=== PATIENT | female | born 1955 | race Caucasian/White ===

== ENCOUNTER 2016-09-24 10:04 | Emergency (ER) | payer MEDICARE ==
[2016-09-24 11:05] VITALS: BP 117/81
--- NOTE | 2016-09-24 11:11 | Emergency Department Report ---
Chief Complaint: Psych Stated Complaint: SUICIDAL THOUGHTS/DEPRESSION Time Seen by Provider: 09/24/16 11:06 - HPI History of Present Illness: 60-year-old female with a past medical history of bipolar schizophrenia hypertension and IBS and acid reflux comes in today for depression and suicidal thoughts and hearing voices. Patient reports she has a planned that she will use pain medication to kill herself. She also reports has a headache as well as a history of anxiety. She reports she also has homicidal thoughts as well. Her behavior health provider is Dr. Strauss at [facility] behavior - Exam Vital Signs: Vital Signs 09/24/16 10:56 Temperature 98.4 F Pulse Rate 63 Respiratory 20 Rate Blood Pressure 117/81 O2 Sat by Pulse 100 Oximetry Physical Exam: General: Alert and oriented 3 Cardio: Regular rate and rhythm S1-S2 no murmurs: Respiratory: Clear to auscultation bilateral MSE screening note: Focused history and physical exam performed. Due to findings the following was ordered: Patient's been evaluated by EMS E provider. Patient be evaluated in the main ER. ED Disposition for MSE Condition: Stable
[2016-09-24 11:30] LABS: Basophils % (Auto) 0.5 % (0.0-1.8); Eosinophils % (Auto) 0.8 % (0.0-4.3); Hematocrit 39.6 % (30.3-42.9); Hemoglobin 13.2 gm/dl (10.1-14.3); Mean Corpuscular HGB Conc 33 % (30-34); Mean Corpuscular Volume 76 fl (79-97); Platelet Count 399 K/mm3 (140-440); Red Blood Count 5.19 M/mm3 (3.65-5.03); Red Cell Distribution Width 14.5 % (13.2-15.2); White Blood Count 10.6 K/mm3 (4.5-11.0)
[2016-09-24 11:32] LABS: Mean Corpuscular Hemoglobin 25 pg (28-32)
[2016-09-24 11:41] LABS: Calcium 9.3 mg/dL (8.4-10.2); Potassium 4.2 mmol/L (3.6-5.0)
[2016-09-24 13:08] LABS: Urine Drugs of Abuse Note Disclamer
[2016-09-24 13:18] LABS: Bilirubin,Urine NEG (Negative); Blood,Urine SM (Negative); Ketones,Urine NEG (Negative); Leukocyte Esterase,Urine NEG (Negative); Nitrite,Urine NEG (Negative); Protein,Urine <15 mg/dL mg/dL (Negative); Urobilinogen,Urine < 2.0 mg/dL (<2.0); WBC,Urine < 1.0 /HPF (0.0-6.0)
--- NOTE | 2016-09-24 13:25 | Emergency Department Report ---
HPI - General Chief Complaint: Psych Time Seen by Provider: 09/24/16 11:06 - HPI HPI: Room 9 The patient is a 60-year-old female presenting with chief complaint of suicidal ideation. The patient states she's been "stressed out" for 3 months. The patient states for the past 2 weeks his suicidal ideation. Patient denies any active attempts at harming herself was states her plan included wrecking her car or overdosing on pills. The patient states she is also having auditory hallucinations telling her to "hurt myself" and "hurt others." The patient states she has been compliant with her medication Location: Mental state Duration: [see above] Quality: Suicidal Severity: Severe Modifying factors: [see above] Context: [see above] Mode of transportation: Unknown ED Past Medical Hx - Past Medical History Hx Hypertension: Yes Additional medical history: Depression, IBS, acid reflux, Dysrhythmia - Surgical History Additional Surgical History: Tonsil, hysterectomy, gall stones, nernia, c- section, tubal ligation - Family History Family history: no significant - Social History Smoking Status: Current Every Day Smoker (1/2 pack per day) Substance Use Type: None (denies illicit drug use), Alcohol (occasional) ED Review of Systems ROS: Stated complaint: SUICIDAL THOUGHTS/DEPRESSION Other details as noted in HPI Comment: All other systems reviewed and negative Constitutional: denies: chills, fever Eyes: denies: eye pain, eye discharge, vision change ENT: denies: ear pain, throat pain Respiratory: denies: cough, shortness of breath, wheezing Cardiovascular: denies: chest pain, palpitations Endocrine: no symptoms reported Gastrointestinal: denies: abdominal pain, nausea, diarrhea Genitourinary: denies: urgency, dysuria, discharge Musculoskeletal: denies: back pain, joint swelling, arthralgia Skin: denies: rash, lesions Neurological: denies: headache, weakness, paresthesias Psychiatric: depression, auditory hallucinations, suicidal thoughts Hematological/Lymphatic: denies: easy bleeding, easy bruising Physical Exam - Physical Exam Vital Signs: Vital Signs 09/24/16 10:56 Temperature 98.4 F Pulse Rate 63 Respiratory 20 Rate Blood Pressure 117/81 O2 Sat by Pulse 100 Oximetry Physical Exam: GENERAL: The patient is well-developed well-nourished female lying on stretcher not appearing to be in acute distress. [] HEENT: Normocephalic. Atraumatic. Extraocular motions are intact. Patient has moist mucous membranes. NECK: Supple. Trachea midline CHEST/LUNGS: Clear to auscultation. There is no respiratory distress noted. HEART/CARDIOVASCULAR: Regular. There is no tachycardia. There is no gallop rub or murmur. ABDOMEN: Abdomen is soft, nontender. Patient has normal bowel sounds. There is no abdominal distention. SKIN: There is no rash. There is no edema. There is no diaphoresis. NEURO: The patient is awake, alert, and oriented. The patient is cooperative. The patient has normal speech MUSCULOSKELETAL: There is no evidence of acute injury. ED Course Vital Signs 09/24/16 10:56 Temperature 98.4 F Pulse Rate 63 Respiratory 20 Rate Blood Pressure 117/81 O2 Sat by Pulse 100 Oximetry ED Medical Decision Making - Lab Data Result diagrams: 09/24/16 11:15 09/24/16 11:15 Laboratory Tests 09/24/16 09/24/16 09/24/16 11:15 11:15 11:15 WBC 10.6 RBC 5.19 H Hgb 13.2 Hct 39.6 MCV 76 L MCH 25 L MCHC 33 RDW 14.5 Plt Count 399 Lymph % (Auto) 29.4 [place] % (Auto) 8.9 H Eos % (Auto) 0.8 Baso % (Auto) 0.5 Lymph # 3.1 [place] # 0.9 H Eos # 0.1 Baso # 0.1 Seg Neutrophils % 60.4 Seg Neutrophils # 6.4 Sodium 142 Carbon Dioxide 29 BUN 21 H Creatinine 1.0 Estimated GFR 57 BUN/Creatinine Ratio 21.00 Glucose 136 H Calcium 9.3 Urine Color Urine Turbidity Urine pH Ur Specific [place] Urine Protein Urine Glucose (UA) Urine Ketones Urine Blood Urine Nitrite Urine Bilirubin Urine Urobilinogen Ur Leukocyte Esterase Urine WBC (Auto) Urine RBC (Auto) U Epithel Cells (Auto) Hyaline Casts Salicylates Urine Opiates Screen Urine Methadone Screen Acetaminophen Ur Barbiturates Screen Ur Phencyclidine Scrn Ur Amphetamines Screen U Benzodiazepines Scrn Urine Cocaine Screen U Marijuana (THC) Screen Drugs of Abuse Note Plasma/Serum Alcohol < 0.01 09/24/16 09/24/16 09/24/16 12:48 12:48 13:12 WBC RBC Hgb Hct MCV MCH MCHC RDW Plt Count Lymph % (Auto) [place] % (Auto) Eos % (Auto) Baso % (Auto) Lymph # [place] # Eos # Baso # Seg Neutrophils % Seg Neutrophils # Sodium Carbon Dioxide BUN Creatinine Estimated GFR BUN/Creatinine Ratio Glucose Calcium Urine Color Straw Urine Turbidity Clear Urine pH 6.0 Ur Specific [place] 1.009 Urine Protein <15 mg/dl Urine Glucose (UA) Neg Urine Ketones Neg Urine Blood Sm Urine Nitrite Neg Urine Bilirubin Neg Urine Urobilinogen < 2.0 Ur Leukocyte Esterase Neg Urine WBC (Auto) < 1.0 Urine RBC (Auto) 2.0 U Epithel Cells (Auto) 3.0 Hyaline Casts 1 Salicylates 0.3 L Urine Opiates Screen Presumptive negative Urine Methadone Screen Presumptive negative Acetaminophen Ur Barbiturates Screen Presumptive negative Ur Phencyclidine Scrn Presumptive negative Ur Amphetamines Screen Presumptive negative U Benzodiazepines Scrn Presumptive negative Urine Cocaine Screen Presumptive negative U Marijuana (THC) Screen Presumptive positive Drugs of Abuse Note Disclamer Plasma/Serum Alcohol 09/24/16 13:12 WBC RBC Hgb Hct MCV MCH MCHC RDW Plt Count Lymph % (Auto) [place] % (Auto) Eos % (Auto) Baso % (Auto) Lymph # [place] # Eos # Baso # Seg Neutrophils % Seg Neutrophils # Sodium Carbon Dioxide BUN Creatinine Estimated GFR BUN/Creatinine Ratio Glucose Calcium Urine Color Urine Turbidity Urine pH Ur Specific [place] Urine Protein Urine Glucose (UA) Urine Ketones Urine Blood Urine Nitrite Urine Bilirubin Urine Urobilinogen Ur Leukocyte Esterase Urine WBC (Auto) Urine RBC (Auto) U Epithel Cells (Auto) Hyaline Casts Salicylates Urine Opiates Screen Urine Methadone Screen Acetaminophen 15.0 Ur Barbiturates Screen Ur Phencyclidine Scrn Ur Amphetamines Screen U Benzodiazepines Scrn Urine Cocaine Screen U Marijuana (THC) Screen Drugs of Abuse Note Plasma/Serum Alcohol Potassium 4.2, chloride 101 - Differential Diagnosis suicidal ideation, schizophrenia, depression Critical care attestation.: If time is entered above; I have spent that time in minutes in the direct care of this critically ill patient, excluding procedure time. ED Disposition Clinical Impression: Suicidal ideation, Schizophrenia, Depression Disposition: DC/TX PSY HOSP/PSY UNIT Is pt being admited?: No Does the pt Need Aspirin: No Condition: Serious Referrals: PRIMARY CARE, [Primary Care Provider] - 3-5 Days Time of Disposition: 13:28 (awaiting acceptance)
== END 2016-09-24 20:30 ==
LOC: EEVIPCON 10:04 → ED 10:04
DX: F20.9 Schizophrenia, unspecified (principal); F32.9 Major depressive disorder, single episode, unspecified; R45.851 Suicidal ideations; I10 Essential (primary) hypertension; K58.9 Irritable bowel syndrome, unspecified; K21.9 Gastro-esophageal reflux disease without esophagitis; F17.210 Nicotine dependence, cigarettes, uncomplicated
CPT/HCPCS: 36415; 80048; 80307; 81001; 85025; 99284; G0480; 80320

== ENCOUNTER 2016-10-23 15:22 | Emergency (ER) | payer MEDICARE ==
[2016-10-23] MEDS ORDERED: ALUM-MAG HYDROX-SIMETH 200-200-20MG/5ML PO ONE (17:04)
[2016-10-23] MEDS ORDERED: NACL 0.9% 1000 ML 1,000 ML IV ONE (17:04)
[2016-10-23] MEDS ORDERED: LIDOCAINE VISCOUS 2% PO ONE (17:04)
[2016-10-23] MEDS ORDERED: GLUCAGEN IV ONE (17:07)
[2016-10-23] MEDS ORDERED: ZOFRAN IV ONE (17:09)
[2016-10-23 18:07] LABS: Basophils % (Auto) 0.2 % (0.0-1.8); Eosinophils % (Auto) 0.1 % (0.0-4.3); Hematocrit 38.8 % (30.3-42.9); Hemoglobin 13.1 gm/dl (10.1-14.3); Mean Corpuscular HGB Conc 34 % (30-34); Mean Corpuscular Volume 73 fl (79-97); Platelet Count 396 K/mm3 (140-440); Red Blood Count 5.28 M/mm3 (3.65-5.03); Red Cell Distribution Width 14.8 % (13.2-15.2); White Blood Count 14.7 K/mm3 (4.5-11.0)
[2016-10-23 18:12] LABS: Mean Corpuscular Hemoglobin 25 pg (28-32)
[2016-10-23 18:20] LABS: Alanine Aminotransferase 14 units/L (7-56); Albumin 4.6 g/dL (3.9-5); Albumin/Globulin Ratio 1.2 %; Alkaline Phosphatase 82 units/L (35-129); Anion Gap 19 mmol/L; BUN/Creatinine Ratio 37.77; Bilirubin,Total 0.8 mg/dL (0.1-1.2); Blood Urea Nitrogen 34 mg/dL (7-17); Calcium 9.8 mg/dL (8.4-10.2); Carbon Dioxide 25 mmol/L (22-30); Glucose 83 mg/dL (65-100); Potassium 3.6 mmol/L (3.6-5.0); Sodium 139 mmol/L (137-145); Total Protein 8.3 g/dL (6.3-8.2)
--- NOTE | 2016-10-23 18:32 | Emergency Department Report ---
ED General Adult HPI - General Chief complaint: Upper Respiratory Infection Stated complaint: ACID REFLUX/SPASM Time Seen by Provider: 10/23/16 16:47 Source: patient Mode of arrival: Ambulatory Limitations: No Limitations - History of Present Illness Initial comments: PT c/o acid reflux and difficulty swallowing x 3 days. PT states she was seen at [facility] and they did not do anything. PT has dc instructions that shows she was prescribed carafate and hydrocodone and given GI referral. PT states she takes medication for her Gerd everyday but it is not helping. PT states it feels like she is having a painful spam. MD Complaint: GERD Onset/Timin -: Gradual, days(s) Location: chest (and throat ) Severity scale (0 -10): 10 Quality: sharp, other (spasm ) Consistency: constant Improves with: none Worsens with: eating (pt states she has been unable to eat x 2 days ) Associated Symptoms: chest pain, loss of appetite, nausea/vomiting (pt unable to swallow oral secreations ). denies: fever/chills - Related Data Allergies Allergy/AdvReac Type Severity Reaction Status Date / Time acetaminophen [From Tylenol] Allergy Nausea Verified 09/24/16 10:56 ED Review of Systems ROS: Stated complaint: ACID REFLUX/SPASM Other details as noted in HPI Comment: All other systems reviewed and negative Constitutional: denies: fever ENT: throat pain Respiratory: shortness of breath (intermittent - states spasms take her breath away ). denies: cough Cardiovascular: chest pain Gastrointestinal: nausea, vomiting (spitting up saliva ). denies: abdominal pain Genitourinary: denies: dysuria, hematuria ED Past Medical Hx - Past Medical History Hx Hypertension: Yes Additional medical history: Depression, IBS, acid reflux, Dysrhythmia - Surgical History Additional Surgical History: Tonsil, hysterectomy, gall stones, nernia, c- section, tubal ligation - Social History Smoking Status: Current Every Day Smoker Substance Use Type: None ED Physical Exam - General Limitations: No Limitations General appearance: alert, anxious, other (tearful) - Head Head exam: Present: atraumatic, normocephalic - Eye Eye exam: Present: normal appearance - ENT ENT exam: Present: normal exam, normal orophraynx, mucous membranes moist, normal external ear exam, other (pt spitting salvia out ) - Neck Neck exam: Present: normal inspection, full ROM. Absent: tenderness - Respiratory Respiratory exam: Present: normal lung sounds bilaterally. Absent: respiratory distress - Cardiovascular Cardiovascular Exam: Present: normal rhythm, bradycardia - GI/Abdominal GI/Abdominal exam: Present: soft. Absent: tenderness - Extremities Exam Extremities exam: Present: normal inspection, full ROM - Back Exam Back exam: Present: normal inspection, full ROM - Neurological Exam Neurological exam: Present: alert, oriented X3 - Skin Skin exam: Present: warm, dry, intact ED Course Vital Signs 10/23/16 10/23/16 10/23/16 15:58 19:09 20:32 Temperature 99.1 F 98.2 F Pulse Rate 59 L 56 L 60 Respiratory 18 20 Rate Blood Pressure 142/92 147/79 Blood Pressure 148/79 [Right] O2 Sat by Pulse 100 98 Oximetry - Reevaluation(s) Reevaluation #1: 10/23/16 18:43 PT states the Maalox and Lidocaine caused a spasm. PT states she is still having trouble managing secretions, however, pt was able to tolerate the Maalox and Lidocaine. Reevaluation #2: 10/23/16 21:35 pt states she is feeling better and is able to swallow. PT states she has an appointment with GI on tuesday. - Pulse Oximetry Interpretation Digit-Finger Initial Pulse Oximetry Readin Actions Taken: none ED Medical Decision Making - Lab Data Result diagrams: 10/23/16 17:39 10/23/16 17:39 - Radiology Data Radiology results: image reviewed - Differential Diagnosis gerd, esophageal spasm Critical care attestation.: If time is entered above; I have spent that time in minutes in the direct care of this critically ill patient, excluding procedure time. ED Disposition Clinical Impression: Esophageal spasm GERD (gastroesophageal reflux disease) Qualifiers: Esophagitis presence: with esophagitis Qualified Code(s): K21.0 - Gastro- esophageal reflux disease with esophagitis Disposition: DISCHARGED TO HOME OR SELFCARE Is pt being admited?: No Does the pt Need Aspirin: No Condition: Stable Instructions: Diet for Ulcers and Gastritis (ED), Gastroesophageal Reflux Disease (ED), Esophageal Spasm (ED) Additional Instructions: Continue taking your prescription medications Follow up with GI on Tuesday, as you have already scheduled Return to ED if worsening or concerns Referrals: PRIMARY CARE [Primary Care Provider] - 3-5 Days
[2016-10-23] MEDS ORDERED: NITROSTAT SL ONE (18:51)
[2016-10-23] MEDS ORDERED: MORPHINE IV ONE (18:51)
[2016-10-23] MEDS ORDERED: PEPCID IV ONE (18:51)
[2016-10-23 19:14] LABS: Bilirubin,Urine NEG (Negative); Blood,Urine MOD (Negative); Ketones,Urine 20 mg/dL (Negative); Leukocyte Esterase,Urine NEG (Negative); Mucus,Urine 1+ /HPF; Nitrite,Urine NEG (Negative); Protein,Urine <15 mg/dL mg/dL (Negative); Urobilinogen,Urine < 2.0 mg/dL (<2.0)
[2016-10-23 20:33] VITALS: BP 148/79
--- NOTE | 2016-10-23 21:57 | XRay Report ---
FINAL REPORT PROCEDURE: XR CHEST ROUTINE 2V TECHNIQUE: PA and lateral chest radiographs were obtained. CPT 70971 HISTORY: chest pain COMPARISON: No prior studies are available for comparison. FINDINGS: Heart: Normal. Mediastinum/Vessels: Normal. Lungs/Pleural space: Normal. Bony thorax: No acute osseous abnormality. Other: IMPRESSION: Negative exam..
== END 2016-10-23 22:41 | disposition home or self-care (01) ==
LOC: ED 15:22
DX: K21.0 Gastro-esophageal reflux disease with esophagitis (principal); K22.4 Dyskinesia of esophagus; I10 Essential (primary) hypertension; F17.200 Nicotine dependence, unspecified, uncomplicated
CPT/HCPCS: 36415; 71020; 80053; 81001; 84484; 85025; 93005; 93010; 96361; 96374; 96375; 99284; J1610; J2270; J2405; J7030

== ENCOUNTER 2016-10-27 11:39 | Inpatient (IN) | payer MEDICARE ==
[2016-10-27 18:30] LABS: Bilirubin,Urine NEG (Negative); Blood,Urine MOD (Negative); Ketones,Urine NEG (Negative); Leukocyte Esterase,Urine NEG (Negative); Mucus,Urine FEW /HPF; Nitrite,Urine NEG (Negative); Protein,Urine <15 mg/dL mg/dL (Negative); Urobilinogen,Urine < 2.0 mg/dL (<2.0)
[2016-10-27] MEDS ORDERED: LIDOCAINE VISCOUS 2% PO ONE ×2 (18:56→20:46)
--- NOTE | 2016-10-27 19:05 | Emergency Department Report ---
HPI - General Chief Complaint: Pain General Time Seen by Provider: 10/27/16 18:46 - HPI HPI: Room 5 The patient is a 60-year-old female presenting with a chief complaint of esophageal spasm. Patient states she's been suffering from esophageal spasm intermittently since 2012. The patient states she had a recent flareup 2 weeks ago and went to [facility]. The patient states she left [place] came to our hospital for evaluation. There are hospital the patient was administered GI cocktail was originally worsened her symptoms she states but then felt improved enough to be discharged home. The patient followed up with her regional planner (Dr. Guerra/Dr. Diggs 10/25/2016). The patient was started on fluconazole and scheduled for an EGD for 2016. The patient states she's been compliant with the medication but she continues to have the burning pain in her esophagus. Location: Esophagus Duration: [see above] Quality: Burning Severity: Moderate Modifying factors: [see above] Context: [see above] Mode of transportation: [not driving] ED Past Medical Hx - Past Medical History Previous Medical History?: (esophagitis,) Hx Hypertension: Yes Hx GERD: Yes Additional medical history: Depression, IBS, acid reflux, Dysrhythmia - Surgical History Additional Surgical History: Tonsil, hysterectomy, gall stones, nernia, c- section, tubal ligation - Family History Family history: no significant - Social History Smoking Status: Current Every Day Smoker Substance Use Type: None (denies illicit drug use), Alcohol ED Review of Systems ROS: Stated complaint: THROAT/REFLUX Other details as noted in HPI Comment: All other systems reviewed and negative Constitutional: denies: chills, fever Eyes: denies: eye pain, eye discharge, vision change ENT: throat pain Respiratory: denies: cough, shortness of breath, wheezing Cardiovascular: denies: chest pain, palpitations Endocrine: no symptoms reported Gastrointestinal: denies: abdominal pain, nausea, diarrhea Genitourinary: denies: urgency, dysuria, discharge Musculoskeletal: denies: back pain, joint swelling, arthralgia Skin: denies: rash, lesions Neurological: denies: headache, weakness, paresthesias Psychiatric: denies: anxiety, depression Hematological/Lymphatic: denies: easy bleeding, easy bruising Physical Exam - Physical Exam Vital Signs: Vital Signs 10/27/16 10/27/16 10/27/16 12:24 17:04 17:05 Temperature 98.5 F Pulse Rate 56 L 64 Respiratory 20 16 16 Rate Blood Pressure 157/87 Blood Pressure 198/94 [Left] O2 Sat by Pulse 100 98 98 Oximetry Physical Exam: GENERAL: The patient is well-developed well-nourished female lying on stretcher not appearing to be in acute distress. [] HEENT: Normocephalic. Atraumatic. Extraocular motions are intact. No definite erythema seen in the oropharynx or definite thrush. Oropharynx has non -unform pale yellow and pink patchy appearance NECK: Supple. No meningitic signs are noted. Trachea midline CHEST/LUNGS: Clear to auscultation. There is no respiratory distress noted. HEART/CARDIOVASCULAR: Regular. There is no tachycardia. There is no gallop rub or murmur. ABDOMEN: There is no abdominal distention. SKIN: There is no rash. There is no edema. There is no diaphoresis. NEURO: The patient is awake, alert, and oriented. The patient is cooperative. The patient has normal speech MUSCULOSKELETAL: There is no evidence of acute injury. ED Course Vital Signs 10/27/16 10/27/16 10/27/16 12:24 17:04 17:05 Temperature 98.5 F Pulse Rate 56 L 64 Respiratory 20 16 16 Rate Blood Pressure 157/87 Blood Pressure 198/94 [Left] O2 Sat by Pulse 100 98 98 Oximetry - Consultations Consultation #1: 10/27/16 19:05 Gastroenterology paged 10/27/16 19:[address] Plummer-states patient can be given something for pain ( Vicoprofen is okay) and above the patient can tolerate by mouth she can follow- up with Dr. Diggs in the morning 10/27/16 20:34 Patient states she has had temporary relief with lidocaine but is concerned because she is unable to eat or drink. We'll admit the patient to the hospital 10/27/16 20:36 Hospitalist paged Critical care attestation.: If time is entered above; I have spent that time in minutes in the direct care of this critically ill patient, excluding procedure time. ED Disposition Clinical Impression: GERD (gastroesophageal reflux disease), Esophageal spasm, Hypertension, Dysphagia Disposition: OP ADMITTED IP TO THIS HOSP Is pt being admited?: Yes Does the pt Need Aspirin: No Condition: Fair Instructions: Hypertension (ED) Referrals: PRIMARY CARE, [Primary Care Provider] - 3-5 Days Time of Disposition: 20:37 (hospitalist paged)
[2016-10-27] MEDS ORDERED: NACL 0.9% 1000 ML 1,000 ML IV ONE (20:34)
--- NOTE | 2016-10-27 20:41 | History and Physical Report ---
History of Present Illness Chief complaint: It hurts when i swallow History of present illness: 60 YO Female with SARAHY, IBS, GERD, Nicotine Dependence,Depression, HTN presents to ED for evaluation. Pt states that she has experienced pain upon swallowing for the past week. Pt seen and treated at [facility] 2 weeks ago, but symptoms persist. Pt states that symptoms have worsened over the past 24 hours. Pt is unable to tolerate oral diet. Pt denies fever, chills, CP, palpitation, difficulty breathing, unintentional weight loss, fever, night sweats. The patient followed up with her director drug safety (Dr. Guerra/Dr. Diggs 10/25). The patient was started on fluconazole and scheduled for an EGD. The patient states she's been compliant with the medication but she continues to have the burning pain in her esophagus. Past History Past Medical History: GERD, hypertension Past Surgical History: , hysterectomy, hernia repair, Other (tubal ligation) Medications and Allergies Allergies Allergy/AdvReac Type Severity Reaction Status Date / Time acetaminophen [From Tylenol] Allergy Nausea Verified 09/24/16 10:56 Home Medications Medication Instructions Recorded Confirmed Last Taken Type Unobtainable 10/27/16 10/27/16 Unknown History Active Meds: Active Medications Sodium Chloride (Nacl 0.9% 1000 Ml) 1,000 mls @ 999 mls/hr IV ONCE ONE Stop: 10/27/16 21:34 Last Admin: 10/27/16 20:36 Dose: 999 mls/hr Review of Systems All systems: negative Gastrointestinal: other (odynophagia) Exam - Constitutional Vitals: Temp Pulse Resp BP Pulse Ox 98.5 F 64 16 198/94 98 10/27/16 12:24 10/27/16 17:04 10/27/16 17:05 10/27/16 17:04 10/27/16 17:05 General appearance: Present: mild distress - EENT Eyes: Present: PERRL ENT: hearing intact, clear oral mucosa - Neck Neck: Present: supple, normal ROM - Respiratory Respiratory effort: normal Respiratory: bilateral: CTA - Cardiovascular Heart Sounds: Present: S1 & S2. Absent: rub, click - Extremities Extremities: pulses symmetrical, No edema Peripheral Pulses: within normal limits - Abdominal General gastrointestinal: Present: soft, non-tender, non-distended, normal bowel sounds Female genitourinary: Present: normal - Integumentary Integumentary: Present: clear, warm, dry - Musculoskeletal Musculoskeletal: gait normal, strength equal bilaterally - Psychiatric Psychiatric: appropriate mood/affect, intact judgment & insight - Neurologic Neurologic: CNII-XII intact, moves all extremities Results - Labs CBC & Chem 7: 10/27/16 21:25 10/27/16 21:25 Assessment and Plan - Patient Problems (1) Esophageal spasm Current Visit: Yes Status: Acute Plan to address problem: GI consulted, PPI therapy, Calcium channel florencio, supportive care, bowel rest (2) Accelerated hypertension Current Visit: Yes Status: Acute Plan to address problem: Monitor bp q shift, continue current antihypertensive therapy (3) Dysphagia Current Visit: Yes Status: Acute Qualifiers: Dysphagia type: D Plan to address problem: GI consulted, EGD as per GI team. (4) GERD (gastroesophageal reflux disease) Current Visit: Yes Status: Acute Qualifiers: Esophagitis presence: E Plan to address problem: PPI therapy, supportive care. (5) DVT prophylaxis Current Visit: Yes Status: Acute
[2016-10-27] MEDS ORDERED: TYLENOL PO PRN (20:43)
[2016-10-27] MEDS ORDERED: NORVASC PO ONE (20:47)
[2016-10-27] MEDS ORDERED: APRESOLINE IV PRN (20:48)
--- NOTE | 2016-10-27 20:53 | Admit Criteria Form ---
Admission Criteria Documentation: GASTROENTEROLOGY GRG Clinical Indications for Admission to Inpatient Care (Place 'X' for any and all applicable criteria): Hospital admission is needed for appropriate care of the patient because of ANY ONE of the following: [ ]I. Hemoperitoneum(7) [ ]II. Ascites requiring acute treatment indicated by ANY ONE of the following( 8)(9): [ ]a) Hemodynamic instability remaining after emergency or observation level care (as appropriate) [ ]b) Peritoneal signs present (eg, abdominal rigidity, rebound tenderness, absent bowel sounds) [ ]c) Tachypnea, Hypoxemia, or other respiratory symptoms remain after emergency or observation level care (as appropriate) [ ]d) Suspected infected ascites as indicated by ANY ONE of the following: [ ]i) Temperature greater than 100 degrees F (37.8 degrees C) [ ]ii) Abdominal pain or tenderness not relieved by paracentesis [ ]iii) Systemic signs of infection (eg, elevated WBC count, fever) [ ]iv) Ascitic fluid analysis consistent with infection ( eg, elevated WBC count): [ ]v) Vital sign abnormality [ ]III. Suspected acute intra-abdominal process indicated by ANY ONE of the following(1)(2)(3)(4)(5): [ ]a) Hemodynamic instability [ ]b) Peritoneal signs present (eg, abdominal rigidity, rebound tenderness, absent bowel sounds) [ ]c) Bowel obstruction suspected (eg, severe vomiting, abdominal distension) [ ]d) Suspected mesenteric ischemia or ischemic colitis(6) [ ]e) Other signs or symptoms of acute abdominal disease (eg, severe pain, free air): [ ]IV. Severe liver disease indicated by ANY ONE of the following(8)(9)(10)(11)( 12)(13)(14): [ ]a) Acute hepatitis (eg, transaminase level greater than 1000 IU/L) [ ]b) Acute elevation of prothrombin time to more than 50% above normal or INR greater than 1.5 [ ]c) Bilirubin greater than 20 mg/dL (342 micromoles/L) (15) [ ]d) New-onset or worsening hepatic encephalopathy [ ]e) Acute liver necrosis [ ]f) Vomiting or dehydration that is severe of persistent [ ]g) Hemodynamic instability due to liver disease [ ]h) Acute renal failure [ ]i) Hepatic abscess [ ]j) Dehydration that is severe or persistent [ ]k) Hepatic hydrothorax(21) [ ]l) Other indications of severe liver disease (eg, persistent fever , ingestion of hepatotoxin) [ ]V. Severe diarrhea indicated by ANY ONE of the following(17)(18)(19)(20)(21)( 22)(23): [ ]a) High fever or other high-risk infection situation [ ]b) Intractable bloody diarrhea (eg, more than 6 bloody stools per day) [ ]c) Suspected Clostridium difficile-associated diarrhea(24) [ ]d) Change in mental status that persists after emergency or observation level care (as appropriate) [ ]e) Severe dehydration (eg, greater than 9% loss of body weight in children) [ ]f) Inability to maintain hydration [ ]g) Peritoneal signs present (eg, abdominal rigidity, rebound tenderness, absent bowel sounds) [ ]h) Abdominal ischemia suspected(6) [ ]i) Hemodynamic instability that persists after emergency or observation level care (as appropriate) [ ]j) Severe electrolyte abnormalities requiring inpatient care [ ]k) Acute renal failure [ ]. Suspected toxic megacolon(5)(6) [ ]VII.Severe dysphagia indicated by ANY ONE of the following(25)(26): [ ]a) Suspected esophageal perforation or fistula(27) [ ]b) Suspected cause that requires inpatient care (eg, caustic ingestion, severe esophagitis) (28) [ ]c) Severe dehydration (eg, greater than 9% loss of body weight in children) [ ]d) Inability to manage secretions or maintain hydration [ ]e) Hemodynamic instability that persists after emergency or observation level care (as appropriate) [ ]f) Severe electrolyte abnormalities requiring inpatient care [ ]g) Acute renal failure [ ]VIII.Vomiting and ANY ONE of the following (29)(30)(31)(32): [ ]a) High fever or other high-risk infection situation [ ]b) Change in mental status that persists after emergency or observation level care (as appropriate) [ ]c) Severe dehydration (e.g., greater than 9% loss of body weight in children) [ ]d) Peritoneal signs present (e.g., abdominal rigidity, rebound tenderness, absent bowel sounds) [ ]e) Hemodynamic instability that persists after emergency or observation level care (as appropriate) [ ]f) Severe electrolyte abnormalities requiring inpatient care [ ]g) Acute renal failure [ ]h) Bowel obstruction suspected (e.g., severe vomiting, abdominal distension) [ ]i) Vomiting that is severe or persistent after medical treatment [ ]IX. Significant dehydration indicated by ANY ONE of the following(23)(24)(25) [ ]a) Clinical findings of severe dehydration indicated by ANY ONE of the following: [ ]i) Acute loss of weight from baseline (5% of body weight in adults, 9% in pediatric patients) [ ]ii) Hemodynamic instability [ ]iii) Acute renal failure [ ]iv) Serum sodium greater than 150 mEq/L (mmol/L) [ ]b) Dehydration that is persistent indicated by ALL of the following: [ ]i) Oral rehydration therapy not tolerated or insufficient to adequately correct dehydration [ ]ii) Appropriate intravenous treatment (eg, fluids) does not readily correct dehydration hours of (ie, after 12 to 24 of treatment) [ ]X. Gastroparesis and ANY ONE of the following(37)(38)(39): [ ]a) Dehydration that is severe or persistent [ ]b) Severe electrolyte abnormalities requiring inpatient care [ ]c) Acute renal failure [ ]d) Vomiting that is severe or persistent [ ]XI. Complications of transplanted liver indicated by ANY ONE of the following (40)(41): [ ]a) Acute graft rejection requiring inpatient management (eg, intravenous immunosuppression)(42) [ ]b) Failure of transplanted liver as indicated by ANY ONE of the following: [ ]i) Acute hepatitis (eg, transaminase level greater than 1000 International Units per liter (IU/L)) [ ]ii) Acute elevation of prothrombin time to more than 50% above baseline or INR greater than 1.5 [ ]iii) Bilirubin greater than 20 mg/dL (342 micromoles/L) [ ]iv) New-onset or worsening hepatic encephalopathy [ ]v) Acute elevation of serum ammonia level (eg, greater than 210 mcg/dL (150 micromoles/L)) [ ]vi) Acute liver necrosis [ ]c) Infection requiring inpatient management (eg, Hemodynamic instability, need for intravenous antimicrobial treatment)(43)(44)(45)(46)(47)(48)(49)(50) [ ]d) Other complication of transplanted liver (eg, thrombosis, autoimmune hepatitis, variceal bleeding) requiring inpatient management(51)(52) [ ]XII Complications of transplanted pancreas indicated by ANY ONE of the following(53): [ ]a) Acute graft rejection requiring inpatient management (eg, intravenous immunosuppression)(42)(54) [ ]b) Failure of transplanted pancreas as indicated by ANY ONE of the following: [ ]i) Serum amylase greater than 3 times the upper limit of normal or baseline [ ]ii) Serum lipase greater than 3 times the upper limit of normal or baseline [ ]iii) Imaging findings consistent with pancreatic inflammation or necrosis [ ]c) Infection requiring inpatient management (eg, Hemodynamic instability, need for intravenous antimicrobial treatment)(43)(44)(45)(46)(47)(48)(49)(50) [ ]d) Other complication of transplanted liver (eg, thrombosis, autoimmune hepatitis, variceal bleeding) requiring inpatient management(51)(52) [X ]X. Gastroenterology condition and ALL of the following: [ X]a) Symptom or finding for which emergency and observation care have failed or are not considered appropriate (Also use General Criteria: Observation Care as appropriate) [X ]b) Presence of ANY ONE of the following: X ]i) A General Admission Criteria [ ]ii) A Pediatric General Admission Criteria. The original [facility] [employer] [facility] content created by [facility] has been revised. The portions of the content which have been revised are identified through the use of italic text or in bold,and [facility] has neither reviewed nor approved the modified material. All other unmodified content is copyright [facility]. Please see references footnoted in the original [facility] edition 2016 Admission Criteria Met: Yes
[2016-10-27 21:43] LABS: Basophils % (Auto) 0.6 % (0.0-1.8); Eosinophils % (Auto) 0.7 % (0.0-4.3); Hematocrit 37.9 % (30.3-42.9); Hemoglobin 12.8 gm/dl (10.1-14.3); Mean Corpuscular HGB Conc 34 % (30-34); Mean Corpuscular Hemoglobin 25 pg (28-32); Mean Corpuscular Volume 75 fl (79-97); Platelet Count 342 K/mm3 (140-440); Red Blood Count 5.06 M/mm3 (3.65-5.03); Red Cell Distribution Width 15.1 % (13.2-15.2); White Blood Count 9.1 K/mm3 (4.5-11.0)
[2016-10-27 21:56] LABS: Anion Gap 16 mmol/L; BUN/Creatinine Ratio 22.85; Blood Urea Nitrogen 16 mg/dL (7-17); Calcium 9.2 mg/dL (8.4-10.2); Carbon Dioxide 24 mmol/L (22-30); Glucose 78 mg/dL (65-100); Sodium 140 mmol/L (137-145)
[2016-10-27] MEDS: NACL 0.45% 1000 ML 1,000 ML IV SCH (23:02)
[2016-10-28] MEDS ORDERED: CHLORASEPTIC MM PRN (01:42)
[2016-10-28] MEDS ORDERED: LIDOCAINE VISCOUS 2% PO ONE (04:50)
[2016-10-28] MEDS: PROTONIX IV SCH ×2 (10:25→22:07)
[2016-10-28] MEDS: NACL 0.45% 1000 ML 1,000 ML IV SCH (13:00)
--- NOTE | 2016-10-28 16:31 | Progress Note ---
Assessment and Plan Assessment and plan: 1. Dysphagia Has history of recent presumed candidal esophagitis for which she received fluconazole prescribed by client reporting associate; seen recently by Dr. Guerra while admitted at [facility] and supposed to have an outpatient EGD Differential diagnosis - esophagitis versus esophageal spasm versus severe acid reflux versus conversion disorder Consult GI for possible EGD/biopsy, nanometry Give IV PPI, calcium channel florencio, topical anesthetic 2. GERD On IV PPI for now 3. Hypertension Start amlodipine which will also help if she has esophageal spasms Monitor BP 4. Depression Unknown if on any medications at home 5. Tobacco use Counseled regarding importance of quitting 6. DVT prophylaxis History Interval history: c/o inability to swallow, pain upper chest, "throat spasms" Hospitalist Physical - Constitutional Vitals: Temp Pulse Resp BP Pulse Ox 98.3 F 51 L 18 145/77 99 10/28/16 15:55 10/28/16 15:55 10/28/16 15:55 10/28/16 15:55 10/28/16 15:55 General appearance: Present: no acute distress, well-nourished - EENT Eyes: Present: PERRL, EOM intact. Absent: scleral icterus, conjunctival injection - Neck Neck: Present: supple, normal ROM. Absent: masses or JVD - Respiratory Respiratory effort: normal Respiratory: bilateral: CTA, negative: rales, rhonchi, wheezing - Cardiovascular Rhythm: regular Heart Sounds: Present: S1 & S2. Absent: systolic murmur - Extremities Extremities: no ischemia, No edema - Abdominal General gastrointestinal: soft, non-tender, non-distended, normal bowel sounds - Integumentary Integumentary: Present: warm, dry. Absent: jaundice, rash - Neurologic Neurologic: CNII-XII intact, no focal deficits Results - Labs CBC & Chem 7: 10/27/16 21:25 10/27/16 21:25 Labs: Laboratory Last Values WBC 9.1 K/mm3 (4.5-11.0) 10/27/16 21:25 RBC 5.06 M/mm3 (3.65-5.03) H 10/27/16 21:25 Hgb 12.8 gm/dl (10.1-14.3) 10/27/16 21:25 Hct 37.9 % (30.3-42.9) 10/27/16 21:25 MCV 75 fl (79-97) L 10/27/16 21:25 MCH 25 pg (28-32) L 10/27/16 21:25 MCHC 34 % (30-34) 10/27/16 21:25 RDW 15.1 % (13.2-15.2) 10/27/16 21:25 Plt Count 342 K/mm3 (140-440) 10/27/16 21:25 Lymph % (Auto) 46.8 % (13.4-35.0) H 10/27/16 21:25 [place] % (Auto) 8.5 % (0.0-7.3) H 10/27/16 21:25 Eos % (Auto) 0.7 % (0.0-4.3) 10/27/16 21:25 Baso % (Auto) 0.6 % (0.0-1.8) 10/27/16 21:25 Lymph # 4.3 K/mm3 (1.2-5.4) 10/27/16 21:25 [place] # 0.8 K/mm3 (0.0-0.8) 10/27/16 21:25 Eos # 0.1 K/mm3 (0.0-0.4) 10/27/16 21:25 Baso # 0.1 K/mm3 (0.0-0.1) 10/27/16 21:25 Seg Neutrophils % 43.4 % (40.0-70.0) 10/27/16 21:25 Seg Neutrophils # 3.9 K/mm3 (1.8-7.7) 10/27/16 21:25 Sodium 140 mmol/L (137-145) 10/27/16 21:25 Potassium 4.0 mmol/L (3.6-5.0) 10/27/16 21:25 Chloride 104.0 mmol/L (98-107) 10/27/16 21:25 Carbon Dioxide 24 mmol/L (22-30) 10/27/16 21:25 Anion Gap 16 mmol/L 10/27/16 21:25 BUN 16 mg/dL (7-17) 10/27/16 21:25 Creatinine 0.7 mg/dL (0.7-1.2) 10/27/16 21:25 Estimated GFR > 60 ml/min 10/27/16 21:25 BUN/Creatinine Ratio 22.85 % 10/27/16 21:25 Glucose 78 mg/dL (65-100) 10/27/16 21:25 Calcium 9.2 mg/dL (8.4-10.2) 10/27/16 21:25 Urine Color Yellow (Yellow) 10/27/16 16:51 Urine Turbidity Clear (Clear) 10/27/16 16:51 Urine pH 5.0 (5.0-7.0) 10/27/16 16:51 Ur Specific [place] 1.023 (1.003-1.030) 10/27/16 16:51 Urine Protein <15 mg/dl mg/dL (Negative) 10/27/16 16:51 Urine Glucose (UA) Neg mg/dL (Negative) 10/27/16 16:51 Urine Ketones Neg mg/dL (Negative) 10/27/16 16:51 Urine Blood Mod (Negative) 10/27/16 16:51 Urine Nitrite Neg (Negative) 10/27/16 16:51 Urine Bilirubin Neg (Negative) 10/27/16 16:51 Urine Urobilinogen < 2.0 mg/dL (<2.0) 10/27/16 16:51 Ur Leukocyte Esterase Neg (Negative) 10/27/16 16:51 Urine WBC (Auto) 1.0 /HPF (0.0-6.0) 10/27/16 16:51 Urine RBC (Auto) 8.0 /HPF (0.0-6.0) 10/27/16 16:51 U Epithel Cells (Auto) 2.0 /HPF (0-13.0) 10/27/16 16:51 Calcium Oxalate Crystal 2+ 10/27/16 16:51 Urine Mucus Few /HPF 10/27/16 16:51
[2016-10-28] MEDS: CARAFATE PO SCH ×2 (18:07→23:57)
[2016-10-28] MEDS: NORVASC PO SCH (18:07)
[2016-10-28] MEDS: LIDOCAINE VISCOUS 2% PO PRN (20:24)
--- NOTE | 2016-10-29 00:53 | Consultation ---
REFERRING PHYSICIAN: Danuta Barnes MD INDICATION: Odynophagia. HISTORY OF PRESENT ILLNESS: The patient is a 60-year-old black female with history of IBS, GERD, depression, and hypertension. The patient has previously been seen for dysphagia, status post EGD dilatation in middle of last year. The patient reports that recently she has been having some problems with swallowing. Her previous EGD showed Jeanine esophagitis when she saw Dr. Yosef Diggs. Recently, she was put on Diflucan for 7 days. We will plan for a repeat EGD in of coming weeks. The patient reports that she is having problems with spasm in her upper esophageal throat area. She does report she does have reflux and feels like that she is also still having symptoms related to that. She reports no nausea or vomiting. She denies any lower GI symptoms including diarrhea, constipation, or rectal bleeding. No other specific complaints. The patient reports that she has seen ENT over recent months and was told that her symptoms were ENT related. PAST MEDICAL HISTORY: 1. GERD. 2. Hypertension. 3. Status post . 4. Status post hysterectomy. 5. Status post hernia repair. MEDICATIONS: See chart. ALLERGIES: Acetaminophen. SOCIAL HISTORY: Denies alcohol, tobacco, or IV drug abuse. FAMILY HISTORY: Negative for colon cancer. REVIEW OF SYSTEMS: GENERAL: Reports mild weakness. HEENT: No visual complaints or tinnitus. PULMONARY: Denies shortness of breath. CARDIOVASCULAR: No chest pain. GASTROINTESTINAL: Reports esophageal spasms. All points of 13-point review of systems otherwise negative. PHYSICAL EXAMINATION: VITAL SIGNS: Temperature of 98.7, pulse 77, respirations 18, blood pressure 130/70. HEENT: Pupils equal, round, and reactive to light and accommodation. Extraocular movements intact. PULMONARY: Clear to auscultation bilaterally. CARDIOVASCULAR: Regular rate rhythm. Normal S1, S2. ABDOMEN: Positive bowel sounds, soft. SKIN: No obvious rashes. LABORATORY DATA: Pertinent for white count of 9, hemoglobin and hematocrit of 12.8 and 37.9, platelet count 342. Chem-7 within normal limits. ASSESSMENT AND PLAN: A 60-year-old female with history of Jeanine esophagitis on EGD last year and now has had some problems with reported upper esophageal throat spasms and difficulty swallowing. The patient seems to not be able to transfer food from oral cavity or esophagus. I am not sure if this is a GI problem. She does have some esophageal spasms. Management as noted below. PLAN: 1. Continue PPI and calcium channel blockers started. 2. Start Carafate daily. 3. Avoid NSAIDs and aspirin. 4. Plan EGD in a.m. JOB# [id number] CAB/NTS MTDD
[2016-10-29] MEDS: NACL 0.45% 1000 ML 1,000 ML IV SCH (05:02)
[2016-10-29] MEDS: CARAFATE PO SCH ×3 (06:41→17:03)
[2016-10-29] MEDS ORDERED: WATER FOR IRRIG STERILE IR ONE (09:11)
[2016-10-29] MEDS: NORVASC PO SCH ×2 (09:13→12:12)
[2016-10-29] MEDS: PROTONIX IV SCH (09:14)
--- NOTE | 2016-10-29 09:30 | Anesthesia Day of Surgery ---
Anesthesia Day of Surgery - Day of Surgery Patient Examined: Yes Patient H&P Reviewed: Yes Patient is NPO: Yes
--- NOTE | 2016-10-29 09:30 | Anesthesia Consultation ---
Anesthesia Consult and Med Hx Date of service: 10/29/16 - Airway Anesthetic Teeth Evaluation: Poor ROM Head & Neck: Adequate Mental/Hyoid Distance: Adequate Mallampati Class: Class II Intubation Access Assessment: Probably Good - Pre-Operative Health Status ASA Pre-Surgery Classification: ASA2 Proposed Anesthetic Plan: MAC - Pulmonary Hx Smoking: Yes Hx Asthma: Yes COPD: No Hx Pneumonia: Yes Hx Sleep Apnea: No - Cardiovascular System Hx Hypertension: Yes Hx Coronary Artery Disease: No Hx Heart Attack/AMI: No Hx Angina: No Hx Percutaneous Transluminal Coronary Angioplasty (PTCA): No Hx Pacemaker: No Hx Internal Defibrillator: No Hx Valvular Heart Disease: No Hx Heart Murmur: No Hx Peripheral Vascular Disease: No - Central Nervous System Hx Psychiatric Problems: Yes (SUICIDAL IDEATION) - Gastrointestinal Hx Ulcer: No Hx Gastroesophageal Reflux Disease: No (IBS, dysphagea) - Endocrine Hx End Stage Renal Disease: No - Other Systems Hx Cancer: No
[2016-10-29] MEDS: NACL 0.9% 1000 ML 1,000 ML IV SCH ×2 (09:32→18:05)
[2016-10-29] MEDS ORDERED: DIPRIVAN 10 MG/ML IV ONE ×3 (09:37→09:48)
[2016-10-29] MEDS ORDERED: XYLOCAINE MPF 2% ONE (09:41)
--- NOTE | 2016-10-29 10:04 | Post Operative Note ---
Pre-op diagnosis: esophaela spasm, dysphagia Post-op diagnosis: same Findings: EGD: small hiatal hernia - irregular z-line 38 cm (bx's) - gastritis (bx's) - Harrison 56F dilation) Procedure: EGD Anesthesia: MAC Surgeon: MOISE FOX Estimated blood loss: none Pathology: list Specimen disposition: to lab Condition: stable Disposition: floor
--- NOTE | 2016-10-29 10:35 | Post Anesthesia Evaluation ---
- Post Anesthesia Evaluation Patient Participated: Yes Airway Patent: Yes Stable Respiratory Function: Yes Nausea/Vomiting: No Temp > 96.8F: Yes Pain Manageable: Yes Adequeate Hydration: Yes Anesthesia Complications: No
--- NOTE | 2016-10-29 11:35 | Operative Report ---
PROCEDURE: EGD with cold biopsy and balloon dilation. INDICATION: 1. Esophageal spasms. 2. Dysphagia. MEDICATIONS: Propofol per [facility] [employer] ASSISTANT WET PROCESS. COMPLICATIONS: None. DESCRIPTION OF PROCEDURE: The patient brought to procedure suite. The patient had the procedure discussed with her at length. All risks, complications, and benefits discussed after which the patient signed for the procedure to be performed. The patient was placed in left lateral decubitus position. Mouth block was placed in the patient's oral cavity. After adequate sedation medication as above, the endoscope was introduced into the mouth and brought to the level of the second portion of duodenum. Retroflexion view performed. The patient's vital signs remained stable throughout the procedure. FINDINGS: There was an irregular Z line, biopsies performed, acid reflux noted at 40 cm from the gums. Biopsies were taken and sent to pathology. Small hiatal hernia at GE junction. Esophagus grossly otherwise appeared normal. There was mild antral gastritis noted. Biopsies were taken and sent to pathology. The remaining stomach otherwise appeared to be normal. Duodenum appeared to be normal. Retroflexion view performed in the stomach showed no other pathology other than noted above. The patient tolerated the procedure well. No complication during the procedure. IMPRESSION: 1. Hiatal hernia. 2. Irregular Z line, biopsies performed. 3. It should be noted that dilation using a 56F Harrison was performed without obvious complications. 4. Gastritis, biopsies performed. 5. Otherwise normal EGD. RECOMMENDATIONS: 1. Follow up biopsy results. 2. Stool for H. pylori, if present treat. 3. Anti-reflux diet. 4. Bentyl mg p.o. q. 8 hours p.r.n. 5. Consider increased calcium channel florencio. 6. Barium swallow in a.m. 7. We will follow further recommendation based on progress. JOB# [id number] [facility]
[2016-10-29] MEDS ORDERED: PROTONIX PO SCH (12:00)
[2016-10-29] MEDS: BENTYL PO SCH ×3 (13:05→21:29)
[2016-10-29] MEDS: PROTONIX PO SCH (13:12)
[2016-10-29] MEDS: LIDOCAINE VISCOUS 2% PO PRN (15:41)
--- NOTE | 2016-10-29 19:45 | Progress Note ---
Assessment and Plan Assessment and plan: 1. Dysphagia Has history of recent presumed candidal esophagitis for which she received fluconazole prescribed by home therapy clinician; seen recently by Dr. Guerra while admitted at [facility] and supposed to have an outpatient EGD Differential diagnosis - esophagitis versus esophageal spasm versus severe acid reflux versus conversion disorder Consult GI for possible EGD/biopsy, nanometry Give IV PPI, calcium channel florencio, topical anesthetic 2. GERD On IV PPI for now 3. Hypertension Start amlodipine which will also help if she has esophageal spasms Monitor BP 4. Depression Unknown if on any medications at home 5. Tobacco use Counseled regarding importance of quitting 6. DVT prophylaxis History Interval history: s/p EGD; still c/o esoph/throat spasms; scheduled for fluoroscopic barium swallow eval Hospitalist Physical - Constitutional Vitals: Temp Pulse Resp BP Pulse Ox 98.4 F 60 20 118/65 98 10/29/16 15:25 10/29/16 15:25 10/29/16 15:25 10/29/16 15:25 10/29/16 15:25 General appearance: Present: no acute distress, well-nourished Results - Labs CBC & Chem 7: 10/27/16 21:25 10/27/16 21:25 Labs: Laboratory Last Values WBC 9.1 K/mm3 (4.5-11.0) 10/27/16 21:25 RBC 5.06 M/mm3 (3.65-5.03) H 10/27/16 21:25 Hgb 12.8 gm/dl (10.1-14.3) 10/27/16 21:25 Hct 37.9 % (30.3-42.9) 10/27/16 21:25 MCV 75 fl (79-97) L 10/27/16 21:25 MCH 25 pg (28-32) L 10/27/16 21:25 MCHC 34 % (30-34) 10/27/16 21:25 RDW 15.1 % (13.2-15.2) 10/27/16 21:25 Plt Count 342 K/mm3 (140-440) 10/27/16 21:25 Lymph % (Auto) 46.8 % (13.4-35.0) H 10/27/16 21:25 [place] % (Auto) 8.5 % (0.0-7.3) H 10/27/16 21:25 Eos % (Auto) 0.7 % (0.0-4.3) 10/27/16 21:25 Baso % (Auto) 0.6 % (0.0-1.8) 10/27/16 21:25 Lymph # 4.3 K/mm3 (1.2-5.4) 10/27/16 21:25 [place] # 0.8 K/mm3 (0.0-0.8) 10/27/16 21:25 Eos # 0.1 K/mm3 (0.0-0.4) 10/27/16 21:25 Baso # 0.1 K/mm3 (0.0-0.1) 10/27/16 21:25 Seg Neutrophils % 43.4 % (40.0-70.0) 10/27/16 21:25 Seg Neutrophils # 3.9 K/mm3 (1.8-7.7) 10/27/16 21:25 Sodium 140 mmol/L (137-145) 10/27/16 21:25 Potassium 4.0 mmol/L (3.6-5.0) 10/27/16 21:25 Chloride 104.0 mmol/L (98-107) 10/27/16 21:25 Carbon Dioxide 24 mmol/L (22-30) 10/27/16 21:25 Anion Gap 16 mmol/L 10/27/16 21:25 BUN 16 mg/dL (7-17) 10/27/16 21:25 Creatinine 0.7 mg/dL (0.7-1.2) 10/27/16 21:25 Estimated GFR > 60 ml/min 10/27/16 21:25 BUN/Creatinine Ratio 22.85 % 10/27/16 21:25 Glucose 78 mg/dL (65-100) 10/27/16 21:25 Calcium 9.2 mg/dL (8.4-10.2) 10/27/16 21:25 Urine Color Yellow (Yellow) 10/27/16 16:51 Urine Turbidity Clear (Clear) 10/27/16 16:51 Urine pH 5.0 (5.0-7.0) 10/27/16 16:51 Ur Specific [place] 1.023 (1.003-1.030) 10/27/16 16:51 Urine Protein <15 mg/dl mg/dL (Negative) 10/27/16 16:51 Urine Glucose (UA) Neg mg/dL (Negative) 10/27/16 16:51 Urine Ketones Neg mg/dL (Negative) 10/27/16 16:51 Urine Blood Mod (Negative) 10/27/16 16:51 Urine Nitrite Neg (Negative) 10/27/16 16:51 Urine Bilirubin Neg (Negative) 10/27/16 16:51 Urine Urobilinogen < 2.0 mg/dL (<2.0) 10/27/16 16:51 Ur Leukocyte Esterase Neg (Negative) 10/27/16 16:51 Urine WBC (Auto) 1.0 /HPF (0.0-6.0) 10/27/16 16:51 Urine RBC (Auto) 8.0 /HPF (0.0-6.0) 10/27/16 16:51 U Epithel Cells (Auto) 2.0 /HPF (0-13.0) 10/27/16 16:51 Calcium Oxalate Crystal 2+ 10/27/16 16:51 Urine Mucus Few /HPF 10/27/16 16:51
[2016-10-30] MEDS: CARAFATE PO SCH ×3 (00:01→13:06)
[2016-10-30] MEDS: LIDOCAINE VISCOUS 2% PO PRN ×2 (00:01→08:43)
--- NOTE | 2016-10-30 10:48 | Discharge Summary ---
Providers - Providers Date of Admission: 10/27/16 20:43 Date of discharge: 10/30/16 Attending physician: GIBSON HONG 10/28/16 13:48 Consult to Physician [CONS] Routine Consulting Provider: MOISE GUERRA Reason For Exam: dysphagia Place consult to:: dr. Guerra GI Notified:: office Phone number called:: Was contact made?: Yes If yes, spoke with:: dae Time called:: 14:48 Primary care physician: [employer]PER[employer] Hospitalization Condition: Fair Procedures: Barium swallow evaluation EGD Disposition: DISCHARGED TO HOME OR SELFCARE Time spent for discharge: 35 min Core Measure Documentation - Palliative Care Palliative Care/ Comfort Measures: Not Applicable - Core Measures Any of the following diagnoses?: none Exam - Constitutional Vitals: Temp Pulse Resp BP Pulse Ox 98.0 F 65 18 144/79 100 10/30/16 08:00 10/30/16 08:00 10/30/16 08:00 10/30/16 08:00 10/30/16 08:00 Plan Activity: advance as tolerated Diet: low cholesterol, low salt Additional Instructions: Follow-up with your ENT physician. May need to be seen at [facility] Follow up with: LUKAS JAMES MD [Primary Care Provider] - 3-5 Days MOISE GUERRA MD [Staff Physician] - 7 Days (to assess for dysmotility) Prescriptions: amLODIPine [Norvasc] 10 mg PO QDAY #30 tablet Dicyclomine [Bentyl] 20 mg PO QID #120 tablet Lidocaine Viscous 2% 15 ml PO Q8HR PRN #30 udc PRN Reason: Mouth Pain Pantoprazole [Protonix] 40 mg PO BID #60 tablet Phenol 1.4% [Chloraseptic] 1 spray MM PRN PRN #1 bottle PRN Reason: Sore Throat Sucralfate [Carafate] 1 gm PO Q6HR #120 oral.liqd Pending Studies Barium swallow eval
--- NOTE | 2016-10-30 11:00 | Gastroenterology Progress Note ---
Assessment and Plan - Patient Problems (1) Esophageal spasm Current Visit: Yes Status: Acute Plan to address problem: - Unclear if esophageal spasm or conversion disorder. Has had both GI and ENT evaluation so no apparent mass in the neck, and no hx of aspiration pneumonia or underlying neurologic or muscular degenerative disease. - OK to d/c home on mechanical soft diet. - Ba Sw (or manometry) to assess for dysmotility as an outpatient. - Continue diflucan for possible brennen as per Dr Guerra. - May need to see [facility] for further evaluation of her vocal cords. Subjective Date of service: 10/30/16 Principal diagnosis: Esophageal Spasm Interval history: The patient was resting quietly in the room prior to the exam; she began coughing and mimicking dysphonia during the exam. NAD at baseline. No blood or mucus in saliva that she coughed up. Tolerated liquids. Objective - Constitutional Vitals: Temp Pulse Resp BP Pulse Ox 98.0 F 65 18 144/79 100 10/30/16 08:00 10/30/16 08:00 10/30/16 08:00 10/30/16 08:00 10/30/16 08:00 General appearance: no acute distress - Respiratory Respiratory effort: normal Respiratory: bilateral: CTA - Cardiovascular Rhythm: regular Heart Sounds: Present: S1 & S2 - Gastrointestinal General gastrointestinal: Present: soft, non-tender, non-distended - Labs CBC & Chem 7: 10/27/16 21:25 10/27/16 21:25
--- NOTE | 2016-10-30 11:03 | Fluoroscopy Report ---
Barium swallow: History: Dysphagia spasm. Findings: Transit of barium through the cervical and thoracic esophagus appears normal. No hiatal hernia. There is marked gastroesophageal reflux noted. Reflux is noted to extend to the cervical esophagus. No evidence of ulcer. No extrinsic or intrinsic filling defects . Impression: Marked gastroesophageal reflux.
[2016-10-30] MEDS: NORVASC PO SCH (12:41)
[2016-10-30] MEDS: PROTONIX PO SCH (12:42)
[2016-10-30] MEDS: BENTYL PO SCH (12:42)
[2016-10-30 14:21] VITALS: BP 137/73
== END 2016-10-30 13:30 | disposition home or self-care (01) | DRG 392 ==
LOC: ED 11:39 → 3A 20:43
PROVIDERS: ADMIT Internal Medicine; ATTEND Internal Medicine
PROC: 0DB68ZX Excision of Stomach, Via Natural or Artificial Opening Endoscopic, Diagnostic (ICD-10-PCS; principal; 2016-10-29)
PROC: 0DB58ZX Excision of Esophagus, Via Natural or Artificial Opening Endoscopic, Diagnostic (ICD-10-PCS; 2016-10-29)
DX: K22.4 Dyskinesia of esophagus (principal); K20.9 Esophagitis, unspecified; K21.9 Gastro-esophageal reflux disease without esophagitis; I10 Essential (primary) hypertension; F32.9 Major depressive disorder, single episode, unspecified; K58.9 Irritable bowel syndrome, unspecified; F17.210 Nicotine dependence, cigarettes, uncomplicated; R13.10 Dysphagia, unspecified; J45.909 Unspecified asthma, uncomplicated; K44.9 Diaphragmatic hernia without obstruction or gangrene; K29.70 Gastritis, unspecified, without bleeding; Z88.6 Allergy status to analgesic agent; Z90.710 Acquired absence of both cervix and uterus; Z98.51 Tubal ligation status; Z71.6 Tobacco abuse counseling
CPT/HCPCS: 36415; 74220; 80048; 81001; 85025; 88305; 88342; 96360; 99406; C9113; J2704; J3246; J7030